=== PATIENT | female | born 2000 | race Caucasian/White ===

== ENCOUNTER 2021-11-26 09:06 | Inpatient (IN) ==
[2021-11-26] MEDS ORDERED: Buffered Lidocaine 1% SYRIN 1 ml INTRADERM ONE (09:35)
[2021-11-26] MEDS ORDERED: Penicillin G Potassium IV 5,000,000 UNITS in NS 0.9% 100 ml BAG 100 ML IVPB ONE (09:35)
[2021-11-26] MEDS ORDERED: Lactated Ringers 1000 ml BAG 1,000 ML IV ONE ×2 (09:35→17:25)
[2021-11-26] MEDS ORDERED: Lactated Ringers 1000 ml BAG 1,000 ML IV SCH ×2 (10:00)
[2021-11-26] MEDS ORDERED: Betamethasone 6 mg/ml 5 ml VIAL IM SCH (10:00)
[2021-11-26] MEDS ORDERED: Penicillin G Potassium IV 3,000,000 UNITS in NS 0.9% 100 ml BAG 100 ML IVPB SCH (10:00)
[2021-11-26 10:36] LABS: ABS Basophils 0.1 10^3/ul (0-0.2); ABS Eosinophils 0.1 10^3/ul (0-0.6); ABS Monocytes 0.9 10^3/ul (0-0.8); ABS Neutrophils 11.4 10^3/ul (1.5-7.7); Eosinophil % 0.8 %; Hematocrit 35 % (35-47); Hemoglobin 12.1 g/dL (12.0-16.0); Lymphocyte % 13.6 %; Mean Corpuscular HGB Conc 34 g/dL (31-36); Mean Corpuscular Hemoglobin 29 pg (27-31); Mean Corpuscular Volume 84 fL (80-97); Mean Platelet Volume 8.6 fL (7.4-10.4); Platelet Count 302 10^3/uL (150-450); Red Blood Count 4.22 10^6 /uL (3.70-4.87); Red Cell Distribution Width 13 % (10-15); White Blood Count 14.5 10^3/uL (3.5-10.8)
[2021-11-26 10:55] LABS: Urine Benzodiazepine Screen None Detected (None Detect); Urine Cannabinoids Screen None Detected (None Detect); Urine Opiates Screen None Detected (None Detect)
[2021-11-26] MEDS ORDERED: Nalbuphine 10 MG/ML 1 ML VIAL IV ONE (12:53)
[2021-11-26] MEDS ORDERED: Promethazine INJ(RESTRICTED) 25 MG/ML 1 ml VIAL IV ONE (12:54)
[2021-11-26] MEDS: Penicillin G Potassium IV 3,000,000 UNITS in NS 0.9% 100 ml BAG 100 ML IVPB SCH ×3 (14:42→22:59)
[2021-11-26] MEDS ORDERED: OBEPIDURAL (200 ML) 200 ML EPIDURAL ONE (16:57)
[2021-11-26] MEDS ORDERED: Phenylephrine 40 mcg/mL 10mL (400mcg) SYRINGE IV PUSH PRN ×2 (17:25)
[2021-11-26] MEDS ORDERED: Sodium Citrate/Citric Acid LIQ 15 ML UDC PO PRN (17:25)
[2021-11-26] MEDS ORDERED: OBEPIDURAL (200 ML) 200 ML EPIDURAL SCH (18:00)
[2021-11-26 19:54] LABS: Urine Appearance Clear; Urine Bilirubin Negative (Negative); Urine Blood 1+ (Negative); Urine Color Yellow; Urine Glucose 3+(>=500 mg/dL) (Negative); Urine Ketones Trace (Negative); Urine Nitrite Negative (Negative); Urine Protein Negative (Negative); Urine Specific Gravity 1.017 (1.002-1.030); Urine Urobilinogen Negative (Negative)
[2021-11-26 20:02] LABS: Urine Bacteria Absent (Absent); Urine Red Blood Cell 2+(6-10/hpf) (Absent); Urine Squamous Epithelial Cell Present (Absent); Urine White Blood Cell Trace(0-5/hpf) (Absent)
[2021-11-26] MEDS: Lactated Ringers 1000 ml BAG 1,000 ML IV SCH (22:59)
[2021-11-27] MEDS: Lactated Ringers 1000 ml BAG 1,000 ML IV SCH (00:35)
[2021-11-27] MEDS: Penicillin G Potassium IV 3,000,000 UNITS in NS 0.9% 100 ml BAG 100 ML IVPB SCH (02:51)
[2021-11-27] MEDS ORDERED: Oxytocin in LR 20 UNITS/1,000 ML BAG IVPB SCH ×2 (03:00→04:00)
[2021-11-27] MEDS ORDERED: Varicella Virus Vaccine Live 0.5 ML VIAL SUBCUT ONE (03:22)
[2021-11-27] MEDS ORDERED: RHO D Immune Globulin (HUMAN) 300 MCG = 1,500 I.U. INJ IM PRN (03:22)
[2021-11-27] MEDS ORDERED: Lactated Ringers 1000 ml BAG 1,000 ML IV SCH (04:00)
[2021-11-27] MEDS: Dibucaine 1% OINT 28.35 GM TUBE PR PRN (08:17)
[2021-11-27] MEDS: Witch Hazel PAD JAR TOPICAL PRN (08:17)
[2021-11-27] MEDS ORDERED: Calcium Carb (TUMS) 500 mg CHEW TAB PO PRN (17:19)
[2021-11-28 06:15] LABS: ABS Basophils 0.2 10^3/ul (0-0.2); ABS Eosinophils 0.2 10^3/ul (0-0.6); ABS Monocytes 1.3 10^3/ul (0-0.8); ABS Neutrophils 12.3 10^3/ul (1.5-7.7); Eosinophil % 1.4 %; Hematocrit 30 % (35-47); Hemoglobin 10.3 g/dL (12.0-16.0); Lymphocyte % 17.7 %; Mean Corpuscular HGB Conc 35 g/dL (31-36); Mean Corpuscular Hemoglobin 29 pg (27-31); Mean Corpuscular Volume 85 fL (80-97); Mean Platelet Volume 8.5 fL (7.4-10.4); Platelet Count 289 10^3/uL (150-450); Red Blood Count 3.54 10^6 /uL (3.70-4.87); Red Cell Distribution Width 14 % (10-15)
[2021-11-29] MEDS ORDERED: Flu vaccine *QUAD* 2021-22* 0.5 ML SYRINGE IM ONE (09:00)
[2021-11-29 09:03] VITALS: BP 143/65
[2021-11-29] MEDS: Witch Hazel PAD JAR TOPICAL PRN (12:45)
[2021-11-29] MEDS: Dibucaine 1% OINT 28.35 GM TUBE PR PRN (12:46)
== END 2021-11-29 14:04 | disposition home or self-care (01) | DRG 560 ==
LOC: MCHOBOUT 09:06 → MCHOB 09:42
PROVIDERS: ADMIT Midwife; ATTEND Midwife